=== PATIENT | female | born 1955 | race Two or more races ===

== ENCOUNTER 2021-07-29 08:00 | Inpatient (IN) | payer OTHER ==
[~2021-07-29] VITALS: Ht 170.2 cm; Wt 96.2 kg
[2021-07-29] MEDS ORDERED: HYDROCHLOROTHIA25 MG PO (10:09)
[2021-07-29] MEDS ORDERED: COZAAR100 MG PO (10:09)
[2021-07-29] MEDS ORDERED: RESTORIL30 M1 PO (10:10)
[2021-07-29] MEDS ORDERED: FOSAMAX70 MG PO (10:10)
[2021-07-29] MEDS ORDERED: GABAPENTIN600 MG PO (10:10)
[2021-07-29] MEDS ORDERED: LIPITOR20 MG PO (10:10)
[2021-07-29] MEDS ORDERED: ULTRAM50 MG PO (10:11)
[2021-07-29] MEDS ORDERED: ZANAFLEX2 MG PO (10:11)
[2021-08-03] MEDS ORDERED: DICLOFENAC SOD100 GM (14:36)
[2021-08-03] MEDS ORDERED: CALCIUM 600-VI1 EAC2 (14:36)
[2021-08-03] MEDS ORDERED: DICLOFENAC POTA50 MG (14:37)
[2021-08-03] MEDS ORDERED: ROSUVASTATIN CA20 MG (14:37)
[2021-08-05] MEDS ORDERED: PERCOCET 5-3251 EACH PO (18:40)
[2021-08-05] MEDS ORDERED: ELIQUIS2.5 MG PO (18:40)
[2021-08-05] MEDS ORDERED: DUI500 PO (18:40)
== END 2021-08-05 23:07 | disposition home or self-care (01) | DRG 470 ==
LOC: SURH 08-03 05:30 → O/R 08-03 05:30 → SURG 08-03 08:00 → SURH 08-03 20:37
PROVIDERS: ADMIT Orthopaedic Surgery; ATTEND Orthopaedic Surgery
PROC: 0SRC0J9 Replacement of Right Knee Joint with Synthetic Substitute, Cemented, Open Approach (ICD-10-PCS; principal; 2021-08-03 09:35)
DX: M17.11 Unilateral primary osteoarthritis, right knee (principal); D62 Acute posthemorrhagic anemia

== ENCOUNTER → 2021-08-03 08:37 | Outpatient (CLI) | payer OTHER ==
[~2021-08-03 08:37] MED LIST: CALCIUM 600-VI1 EAC2; COZAAR100 MG PO; DICLOFENAC POTA50 MG; DICLOFENAC SOD100 GM; DUI500 PO; ELIQUIS2.5 MG PO; FOSAMAX70 MG PO; GABAPENTIN600 MG PO; HYDROCHLOROTHIA25 MG PO; LIPITOR20 MG PO; PERCOCET 5-3251 EACH PO; RESTORIL30 M1 PO; ROSUVASTATIN CA20 MG; ULTRAM50 MG PO; ZANAFLEX2 MG PO
== END | disposition home or self-care (01) ==
LOC: LAB 08:37
PROVIDERS: ATTEND Orthopaedic Surgery
DX: Z03.818 Encounter for observation for suspected exposure to other biological agents ruled out (principal)

== ENCOUNTER → 2024-07-16 | Emergency (ER) | payer OTHER ==
[~2024-07-16] VITALS: Ht 170.2 cm; Wt 107.5 kg
[~2024-07-16] MED LIST changes: +DEXAMETHASONE SODIUM PHOSPHATE 4 MG/ML VIAL IM STA; +MECLIZINE HCL 25 MG TABLET PO STA
== END | disposition home or self-care (01) ==
LOC: ER 09:32
DX: R42 Dizziness and giddiness (principal); I10 Essential (primary) hypertension
CPT/HCPCS: 74176; 93005; 96365; 99284; J1100